=== PATIENT | female | born 1985 | race Caucasian/White ===

== ENCOUNTER 2019-08-10 07:58 | Outpatient (CLI) | payer OTHER, SELFPAY ==
--- NOTE | 2019-08-10 07:45 | XRR_ITS ---
PROCEDURE INFORMATION: Exam: XR Abdomen, 1 View Exam date and time: 08/10/2019 8:17 AM Age: 33 years old Clinical indication: Condition or disease; Kidney or ureter condition; Other: HX of kidney stones; Prior surgery; Surgery type: Hystero, kidney stone; Additional info: Urolithiasis f/u TECHNIQUE: Imaging protocol: XR of the abdomen. Views: Frontal supine view of the abdomen. 1 View. COMPARISON: CR XR KUB [id number] 08/27/2018 10:[address] Abdomen/Pelvis Renal [id number] 10/29/2018 11:31:45 AM FINDINGS: Gastrointestinal tract: No dilated gas-filled loops of bowel. Organs: No radiopaque renal or ureteral calculi. Vasculature: Phleboliths present in the pelvis. Bones/joints: No acute osseous abnormality. XR/XR KUB [id number] IMPRESSION: No radiopaque renal or ureteral calculus.
== END 2019-08-10 07:59 | disposition home or self-care (01) ==
LOC: RAD 08:01
PROVIDERS: Family Provider Family Medicine; PCP Family Medicine; Visit Provider Urology
DX: N20.9 Urinary calculus, unspecified (principal)
CPT/HCPCS: 74018; 81001; 87086

== ENCOUNTER → 2019-11-29 16:32 | Outpatient (BNVA) | payer OTHER, SELFPAY | PROVIDERS: Family Provider Family Medicine; PCP Family Medicine; Visit Provider Urology | DX: N30.20 Other chronic cystitis without hematuria (principal); N20.9 Urinary calculus, unspecified | CPT/HCPCS: 81001 ==

== ENCOUNTER → 2020-03-27 15:32 | Outpatient (BNVA) | payer OTHER, SELFPAY | PROVIDERS: Family Provider Family Medicine; PCP Family Medicine; Visit Provider Urology | DX: N30.20 Other chronic cystitis without hematuria (principal) | CPT/HCPCS: 81001 ==

== ENCOUNTER 2020-08-27 10:15 | Outpatient (CLI) | payer OTHER, SELFPAY ==
--- NOTE | 2020-08-27 10:26 | MR_ITS ---
WS: [id number] MRI HEAD WITH CONTRAST WITH ATTENTION TO THE INTERNAL AUDITORY CANALS TECHNIQUE: Sagittal T1, T2 axial, T2 axial flair, axial susceptibility weighted imaging, axial diffus ion weighted images, and coronal T2 images were obtained. Pre and post T1 axial and post T1 coronal i mages. ADC and FSPGR images. Post gadolinium images with attention to the internal auditory canals. A xial fiesta imaging. CLINICAL INFORMATION: DIZZINESS AND GIDDINESS COMPARISON: MRI head 2013 FINDINGS: No evidence of restricted diffusion to suggest acute ischemia. Ventricular system and basal cisterns are patent. Normal proctor-white differentiation. Normal posterior fossa. Normal vascular flow voids at the skull base. No extra axial fluid collections. Paranasal sinuses and mastoid air cells are well ae rated. Retention cyst left maxillary sinus measuring 1.7 CM. No hemosiderin on the susceptibility liam ghted images. Proximal 7th and 8th cranial nerves are normal in appearance. Normal trigeminal nerve root entry zone s. No enhancing IAC or CP angle mass. Mastoid air cells are well aerated. No abnormal parenchymal enh ancement. Normal dural venous sinuses. Normal optic chiasm and pituitary infundibulum. Normal caverno us sinuses and Meckel's cave. MR/MR iac's wo/w con* [id number] IMPRESSION: 1. Proximal 7th and 8th cranial nerves are normal in appearance. Normal trigem inal nerve root entry zones. 2. No evidence of enhancing IAC or CP angle mass. 3. Mastoid air cells are well aerated. Retention cyst left maxillary sinus adelina suring 1.7 CM. 4. No hemosiderin on susceptibly weighted images. 5. No other significant findings.
[2020-08-27] MEDS: gadobenate dimeglumine 20 mL vial IV (11:08)
== END 2020-08-27 10:16 | disposition home or self-care (01) ==
LOC: RADWPI 10:29
PROVIDERS: PCP Family Medicine; Visit Provider Specialist
DX: R42 Dizziness and giddiness (principal)
CPT/HCPCS: 70553; A9577

== ENCOUNTER → 2020-09-26 08:33 | Outpatient (BNVA) | payer OTHER, SELFPAY | PROVIDERS: PCP Family Medicine; Visit Provider Urology | DX: N30.20 Other chronic cystitis without hematuria (principal) | CPT/HCPCS: 81003 ==

== ENCOUNTER 2020-12-29 13:58 | Emergency (ER) | payer OTHER, SELFPAY ==
[2020-12-29 14:21] VITALS: BP 101/70; PULSE 95; RESP 16; TEMP 36.8; O2SAT 96; BMI 35.2
[2020-12-29 14:27] VITALS: O2SAT 95
[2020-12-29 15:47] LABS: SARS Covid-2 Antigen Positive (Negative)
--- NOTE | 2020-12-29 15:52 | XRR_ITS ---
PROCEDURE INFORMATION: Exam: XR Chest Exam date and time: 12/29/2020 3:52 PM Age: 35 years old Clinical indication: Cough TECHNIQUE: Imaging protocol: XR of the chest. Views: 1 view. COMPARISON: CR XR KUB [id number] 08/10/2019 8:15 AM FINDINGS: Lungs: Unremarkable. No consolidation. Pleural spaces: Unremarkable. No pleural effusion. No pneumothorax. Heart/Mediastinum: Unremarkable. No cardiomegaly. Bones/joints: Unremarkable. XR/XR chest 1V portable [id number] IMPRESSION: Negative for infiltrate
--- NOTE | 2020-12-29 16:24 | ED_ITS ---
Documented by User: REDDY Cruz 12/30/20 07:04 HPI - COVID General: Chief Complaint: COVID symptoms Stated Complaint: Covid symptoms, weak Time Seen by Provider: 12/29/20 14:57 Triage information: Has fever, cough or shortness of breath . No known COVID + exposure last 14 days History of Present Illness: HPI Narrative: Patient is a 35-year-old female comes to the ED with upper respiratory symptoms. Symptoms started 6 days ago on Thursday. She is complaining of having a dry cough, body aches, sore throat, nasal drainage and congestion. She has not been around anybody that has tested positive for COVID-19. She endorses having some nausea and a couple episodes of emesis over the past 6 days. She has been able to drink fluids and keep them down. Denies any fever, abdominal pain, chest pain, bladder or bowel symptoms. Patient has not received the Covid vaccine. COVID 19 common symptoms: positive non-productive cough, fatigue, body aches, throat pain, nasal congestion, nausea and vomiting; negative fever(s), chills, productive cough, dyspnea, headache(s) or diarrhea COVID 19 other sytmptoms: negative chest pain COVID Results: SARS-CoV-2 Antigen (Rapid) Positive (Negative) H 12/29/20 15:15 12/29/20 Review of Systems Const: Reports: body aches, change in appetite (Decreased) and fatigue; Denies: fever(s) or chills Eyes: Denies: change in vision or eye discomfort ENMT: Reports: throat pain, nasal discharge and nasal congestion; Denies: odynophagia Card: Denies: chest pain, palpitations, edema, swelling of feet/ankles, dyspnea on exertion or orthopnea Resp: Reports: non-productive cough; Denies: dyspnea or productive cough GI: Reports: nausea and vomiting; Denies: abdominal pain, diarrhea, constipation or hematochezia : Denies: flank pain, dysuria or hematuria Musc: Denies: neck pain, back pain or extremity swelling Skin/Breast: Denies: rash or new lesions Neuro: Denies: headache(s), numbness in extremities or weakness in extremities [facility] PFSH: Medical History (Updated 12/29/20 @ 17:25 by SANJAY Prieto) Chronic cystitis Diverticulosis Urinary incontinence, mixed Urolithiasis Surgical History History of bladder repair surgery History of hysterectomy History of umbilical hernia repair Family History Mother , BREAST Cancer Father , LUNG CANCER Cancer Social History Smoking and tobacco status: never smoked Alcohol intake: current Adopted: No Caregiver/support person: No Marital status: Single Current occupational status: employed History of recent travel: No Current gender identity: Female Physical Exam Const: COMMON NORMALS: no acute distress, patient oriented x3 and alert GENERAL APPEARANCE: cooperative and comfortable HENMT: COMMON NORMALS: normocephalic HEAD & SCALP: normocephalic MOUTH: Normal oral and palatal mucosa present THROAT: posterior oropharynx normal and uvula midline Neck/C-Spine: COMMON NORMALS: supple GENERAL: Yes normal visual inspection Resp: COMMON NORMALS: normal respiratory effort, No retractions, No use of accessory muscles and clear to auscultation bilaterally EFFORT & INSPECTION: Yes able to speak in complete sentences, No tachypneic, No respiratory distress and No labored AUSCULTATION: clear to auscultation bilaterally Cardio: COMMON NORMALS: regular rate, regular rhythm, S1 normal heart sound present, S2 normal heart sound present, No gallops present (Cardio), No clicks present (Cardio), No murmurs present (Cardio) and Peripheral pulses 2+ throughout RATE: regular rate RHYTHM: regular rhythm HEART SOUNDS: S1 normal heart sound present and S2 normal heart sound present PERIPHERAL PULSES: Peripheral pulses 2+ throughout GI: COMMON NORMALS: Normal to inspection, nondistended, normoactive bowel sounds present, Soft to palpation, non-tender and no masses PALPATION: Yes Soft to palpation : COMMON NORMALS: Yes no CVA tenderness BLADDER/KIDNEY EXAM: Yes no CVA tenderness Back/Pelvis: COMMON NORMALS: no CVA tenderness Extremity: COMMON NORMALS: normal to inspection Neuro: COMMON NORMALS: patient oriented x3 and moves all extremities SENSORIUM/ORIENTATION: Yes alert Skin: GENERAL SKIN EXAM: dry skin Course Vital Signs: Vital signs: Vital Signs Temperature 98.3 F 12/29/20 14:21 Pulse Rate 94 12/29/20 17:35 Respiratory Rate 18 12/29/20 17:35 Blood Pressure 103/68 12/29/20 17:35 Pulse Oximetry 96 12/29/20 17:35 MDM - COVID Lab Data: Attestation: I reviewed the patient's lab results. Labs: Lab Results 12/29/20 Range/Units 15:15 SARS-CoV-2 Ag (Rap id) Positive H (Negative) COVID Results: SARS-CoV-2 Antigen (Rapid) Positive (Negative) H 12/29/20 15:15 12/29/20 Discharge Plan Discharge Patient Disposition: Home Clinical Impression: COVID-19 Condition: Stable Prescriptions: New Zofran 4 mg tablet 4 mg PO Q8H 3 Days Qty: 9 RF: 0 No Action propranolol 40 mg tablet 40 mg PO BID RF: 0 bupropion HCl [Wellbutrin XL] 150 mg tablet extended release 24 hr 150 mg PO QAM RF: 0 buspirone 10 mg tablet 10 mg PO BID RF: 0 omeprazole 20 mg capsule,delayed release(DR/EC) 20 mg PO BID RF: 0 dicyclomine 10 mg capsule 10 mg PO QID RF: 0 triamterene-hydrochlorothiazid [Maxzide-25mg] 37.5-25 mg tablet 1 tab PO QAM RF: 0 diazepam 2 mg tablet 2 mg PO BID PRNRF: 0 sulfamethoxazole-trimethoprim [Bactrim DS] 800-160 mg tablet 1 tab PO BID Qty: 60 RF: 3 Discharge Orders: Discharge ED (Routine); Ordered 12/29/20 Ordered By: Chuck Johnson Referrals: Kevin Graves MD [Primary Care Provider] - Discharge Diet: Usual diet Discharge Activity: Increase activity as tolerated Patient Instructions: Viral Syndrome (ED) Activity Restrictions/Additional Instructions: Follow-up with medical provider as directed. Take medications as prescribed. Return to the ER or your medical provider if condition worsens. Please read and understand discharge instructions. If any questions ask please. Quarantine from 10 days once symptoms started. Coding Level of Care Code ED Reporting Consultant for g Fwd Exam Comprehensive Documented by User: SANJAY Prieto 12/29/20 18:34 HPI - COVID General: Chief Complaint: COVID symptoms Stated Complaint: Covid symptoms, weak Time Seen by Provider: 12/29/20 14:57 COVID Results: SARS-CoV-2 Antigen (Rapid) Positive (Negative) H 12/29/20 15:15 12/29/20 PFSH ED PFSH: Medical History (Updated 12/29/20 @ 17:25 by SANJAY Prieto) Chronic cystitis Diverticulosis Urinary incontinence, mixed Urolithiasis Surgical History History of bladder repair surgery History of hysterectomy History of umbilical hernia repair Family History Mother , BREAST Cancer Father , LUNG CANCER Cancer Social History Smoking and tobacco status: never smoked Alcohol intake: current Adopted: No Caregiver/support person: No Marital status: Single Current occupational status: employed History of recent travel: No Current gender identity: Female Course Vital Signs: Vital signs: Vital Signs Temperature 98.3 F 12/29/20 14:21 Pulse Rate 94 12/29/20 17:35 Respiratory Rate 18 12/29/20 17:35 Blood Pressure 103/68 12/29/20 17:35 Pulse Oximetry 96 12/29/20 17:35 MDM - COVID MDM Narrative: Medical decision making narrative: Discussed lab and radiology results with patient patient agreeable plan will self quarantine Lab Data: Labs: Lab Results 12/29/20 Range/Units 15:15 SARS-CoV-2 Ag (Rap id) Positive H (Negative) COVID Results: SARS-CoV-2 Antigen (Rapid) Positive (Negative) H 12/29/20 15:15 12/29/20 Discharge Plan Discharge Patient Disposition: Home Clinical Impression: COVID-19 Condition: Stable Prescriptions: New Zofran 4 mg tablet 4 mg PO Q8H 3 Days Qty: 9 RF: 0 No Action propranolol 40 mg tablet 40 mg PO BID RF: 0 bupropion HCl [Wellbutrin XL] 150 mg tablet extended release 24 hr 150 mg PO QAM RF: 0 buspirone 10 mg tablet 10 mg PO BID RF: 0 omeprazole 20 mg capsule,delayed release(DR/EC) 20 mg PO BID RF: 0 dicyclomine 10 mg capsule 10 mg PO QID RF: 0 triamterene-hydrochlorothiazid [Maxzide-25mg] 37.5-25 mg tablet 1 tab PO QAM RF: 0 diazepam 2 mg tablet 2 mg PO BID PRNRF: 0 sulfamethoxazole-trimethoprim [Bactrim DS] 800-160 mg tablet 1 tab PO BID Qty: 60 RF: 3 Discharge Orders: Discharge ED (Routine); Ordered 12/29/20 Ordered By: Chuck Johnson Referrals: Kevin Graves MD [Primary Care Provider] - Discharge Diet: Usual diet Discharge Activity: Increase activity as tolerated Patient Instructions: Viral Syndrome (ED) Activity Restrictions/Additional Instructions: Follow-up with medical provider as directed. Take medications as prescribed. Return to the ER or your medical provider if condition worsens. Please read and understand discharge instructions. If any questions ask please. Quarantine from 10 days once symptoms started. Coding Level of Care Code ED Reporting Consultant for Shea Fwho Exam Comprehensive
[2020-12-29] MEDS: ondansetron 4 MG Tablet PO (16:52)
[2020-12-29] MEDS: ibuprofen 800 mg tablet PO (16:52)
[2020-12-29 17:35] VITALS: BP 103/68; PULSE 94; RESP 18; O2SAT 96
== END 2020-12-29 17:35 | disposition home or self-care (01) ==
PROVIDERS: Physician Assistant; Emergency Provider Nurse Practitioner Family; PCP Family Medicine
DX: U07.1 COVID-19 (principal)
CPT/HCPCS: 71045; 87426; 99283; Q0162

== ENCOUNTER → 2021-04-03 08:37 | Outpatient (BNVA) | payer OTHER, SELFPAY | PROVIDERS: PCP Family Medicine; Visit Provider Urology | DX: N30.20 Other chronic cystitis without hematuria (principal); N20.9 Urinary calculus, unspecified | CPT/HCPCS: 81003 ==

== ENCOUNTER 2021-06-13 11:37 | Outpatient (CLI) | payer OTHER, SELFPAY ==
--- NOTE | 2021-06-13 11:42 | USCV_ITS ---
Lluvia Garcia Age: 35 Gender: F : 1985 Exam Date: 06/13/2021 12:12 Ordering Phys: Kevin Graves MD Technologist: MIGEL SANON [place] [facility] [place]: PAIN LOWER RT LEG CALF HISTORY: Post Covid pain rt lower leg PROCEDURES: Venous duplex imaging was performed in only the right lower extremity. The following venous structures were evaluated: common femoral vein, profunda vein, proximal portion of the greater saphenous vein, superficial femoral vein, and the popliteal vein. In addition, the posterior tibial and peroneal trunk were evaluated. Serial compression, augmentation maneuvers, and spectral Doppler flow evaluation were performed. FINDINGS: Normal 2-D Doppler and augmentation and compressibility throughout the lower extremity venous structures. Additional imaging through the proximal calf veins also reveals no thrombus. Limited evaluation of the greater saphenous vein is patent with no thrombus.. CONCLUSIONS No evidence of right lower extremity DVT. Valdez Uriostegui MD (Electronically Signed) Final Date: 13 June 2021 17:06 S
== END 2021-06-13 11:38 | disposition home or self-care (01) ==
PROVIDERS: PCP Family Medicine; Visit Provider Family Medicine
DX: R60.9 Edema, unspecified (principal); M79.661 Pain in right lower leg
CPT/HCPCS: 93971

== ENCOUNTER → 2021-11-26 14:56 | Outpatient (BNVA) | payer OTHER, SELFPAY | PROVIDERS: PCP Family Medicine; Visit Provider Urology | DX: N30.20 Other chronic cystitis without hematuria (principal); N20.9 Urinary calculus, unspecified | CPT/HCPCS: 81003 ==

== ENCOUNTER 2022-10-28 09:00 | Outpatient (CLI) | payer BC, SELFPAY ==
--- NOTE | 2022-10-28 09:10 | MM_ITS ---
WS: [id number] DIAGNOSTIC BILATERAL DIGITAL BREAST TOMOSYNTHESIS MAMMOGRAPHY WITH CAD RIGHT breast ultrasound, limited HISTORY: MASS OF BREAST, RT COMPARISON: 10/18/2014 TECHNIQUE: Bilateral craniocaudad, mediolateral oblique, and mediolateral views are submitted with to mosynthesis and SM. Spot compression RIGHT CC. Computer aided detection utilized. Breast composition: There are scattered areas of fibroglandular density. Palpable marker is placed al justice the inferior medial RIGHT breast. No underlying mass or distortion identified. There are no suspi cious masses or calcifications within either breast. RIGHT breast ultrasound, limited. Ultrasound is directed from 3-6 o'clock in the RIGHT breast in the palpable region. No mass identifie d at the palpable site. There are a few small cysts and small clusters of cysts. One of these cluster s is at 3:00, 3 cm from the nipple. This is a complex cluster of cysts with a few septations. Favor t his is a benign cluster of cysts but should be further evaluated. MM/[place] [id number] IMPRESSION: BI-RADS: 3-Probably Benign FOLLOW UP: 6 Month Follow-up 1. No solid mass in the region of the palpable abnormality. 2. Cluster of cysts with thin septations in the RIGHT breast at 3:00. Recommen d 6 month ultrasound follow-up as this is not a simple cyst. May need serial ul trasound evaluation for a total of 2 years.
--- NOTE | 2022-10-28 10:02 | US_ITS ---
WS: [id number] DIAGNOSTIC BILATERAL DIGITAL BREAST TOMOSYNTHESIS MAMMOGRAPHY WITH CAD RIGHT breast ultrasound, limited HISTORY: MASS OF BREAST, RT COMPARISON: 10/18/2014 TECHNIQUE: Bilateral craniocaudad, mediolateral oblique, and mediolateral views are submitted with to mosynthesis and SM. Spot compression RIGHT CC. Computer aided detection utilized. Breast composition: There are scattered areas of fibroglandular density. Palpable marker is placed al justice the inferior medial RIGHT breast. No underlying mass or distortion identified. There are no suspi cious masses or calcifications within either breast. RIGHT breast ultrasound, limited. Ultrasound is directed from 3-6 o'clock in the RIGHT breast in the palpable region. No mass identifie d at the palpable site. There are a few small cysts and small clusters of cysts. One of these cluster s is at 3:00, 3 cm from the nipple. This is a complex cluster of cysts with a few septations. Favor t his is a benign cluster of cysts but should be further evaluated. US/US breast RT limited* [id number] IMPRESSION: BI-RADS: 3-Probably Benign FOLLOW UP: 6 Month Follow-up 1. No solid mass in the region of the palpable abnormality. 2. Cluster of cysts with thin septations in the RIGHT breast at 3:00. Recommen d 6 month ultrasound follow-up as this is not a simple cyst. May need serial ul trasound evaluation for a total of 2 years.
== END 2022-10-28 09:01 | disposition home or self-care (01) ==
PROVIDERS: PCP Family Medicine; Visit Provider Family Medicine
DX: N63.15 Unspecified lump in the right breast, overlapping quadrants (principal)
CPT/HCPCS: 76642; 77062; G0279

== ENCOUNTER 2023-04-24 08:06 | Outpatient (CLI) | payer BC, SELFPAY ==
--- NOTE | 2023-04-24 08:15 | US_ITS ---
WS: [id number] ULTRASOUND RIGHT BREAST HISTORY: 6-month follow-up RIGHT breast mass at 3:00. COMPARISON: 10/28/2022 TECHNIQUE: 2-D and Doppler. Multi cystic mass previously described at 3:00 within the RIGHT breast is reidentified but is much sm aller in size. Mass now measures 5 x 4 x 3 mm. Previous measurement of 9 x 5 x 7 mm. No increased vas cularity. IMPRESSION: US/US breast RT limited* [id number] BI-RADS: 2-Benign FOLLOW-UP: See Report 1. Significant decrease in size of the cluster of small cysts in the RIGHT [address] at 3:00 now measuring 5 x 4 x 3 mm. 2. Return to annual screening mammography.
== END 2023-04-24 08:07 | disposition home or self-care (01) ==
LOC: RAD 08:07
PROVIDERS: PCP Family Medicine; Visit Provider Family Medicine
DX: N63.15 Unspecified lump in the right breast, overlapping quadrants (principal); N60.01 Solitary cyst of right breast
CPT/HCPCS: 76642

== ENCOUNTER 2023-10-30 08:49 | Outpatient (CLI) | payer BC, SELFPAY ==
--- NOTE | 2023-10-30 09:00 | MM_ITS ---
WS: [id number] Bilateral screening 3D tomosynthesis digital mammogram, 10/30/2023 Clinical Data: screening Comparison: 10/28/2022, 10/18/2014. Findings: The breast parenchymal pattern shows fibroglandular tissue. No spiculated masses or clustered calcifi cations are seen. There are no secondary signs of carcinoma. MM/[place] [id number] Impression: 1. Negative bilateral mammogram unchanged. 2. Recommend annual screening mammograms. BIRADS: 1-Negative FOLLOW UP: 1 Year Follow-up The CAD drawing checker was used.
== END 2023-10-30 08:50 | disposition home or self-care (01) ==
LOC: RAD 08:50
PROVIDERS: PCP Family Medicine; Visit Provider Family Medicine
DX: Z12.31 Encounter for screening mammogram for malignant neoplasm of breast (principal)
CPT/HCPCS: 77063; 77067

== ENCOUNTER → 2024-03-17 08:16 | Outpatient (BNVA) | payer BC, SELFPAY | PROVIDERS: PCP Family Medicine; Visit Provider Family Medicine | DX: F32.A Depression, unspecified (principal); G43.909 Migraine, unspecified, not intractable, without status migrainosus; R41.3 Other amnesia | CPT/HCPCS: 80053; 80061; 85025 ==

== ENCOUNTER 2024-11-18 14:15 | Outpatient (CLI) | payer BC, SELFPAY ==
--- NOTE | 2024-11-18 14:24 | MM_ITS ---
WS: [id number] BILATERAL 3D TOMOSYNTHESIS DIGITAL SCREENING MAMMOGRAPHY WITH CAD CLINICAL INFORMATION: SCREEN HISTORY: Screening mammogram. No current complaints. COMPARISON: 2023 TECHNIQUE: Bilateral CC and MLO views. FINDINGS: Scattered fibroglandular densities bilaterally. No suspicious focal mass, asymmetry, calcifications, or architectural distortion. No evidence of malignancy. MM/MM scr BI tomosynthesis [id number] IMPRESSION: DENSITY: There are scattered areas of fibroglandular density. BI-RADS: 1 - Negative. FOLLOW UP: 1 Year Follow-up Recommend return to annual screening mammography.
== END 2024-11-18 14:16 | disposition home or self-care (01) ==
PROVIDERS: PCP Family Medicine; Visit Provider Family Medicine
DX: Z12.31 Encounter for screening mammogram for malignant neoplasm of breast (principal); R92.323 Mammographic fibroglandular density, bilateral breasts
CPT/HCPCS: 77063; 77067

== ENCOUNTER 2025-01-16 14:33 | Emergency (ER) | payer BC, SELFPAY ==
[2025-01-16 14:35] VITALS: BP 130/102; PULSE 122; RESP 16; TEMP 36.9; O2SAT 95
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
--- OUTSIDE RECORDS SUMMARY | 2025-01-16 14:41 | XMS_ITS | Clinical Summary ---
Author Organization [facility] de Address [address] [place] [address] Phone Care Team Providers Care Epidemiologist Name Role Phone Kevin Graves MD Primary Care Provider + [phone] Allergies No known active allergies Medications raNITIdine (ZANTAC) 150 mg tablet Take 150 mg by mouth 2 times daily. Active buPROPion HCL (WELLBUTRIN XL) 150 mg Extended Release 24 hour tablet TAKE 1 TABLET BY MOUTH ONCE DAILY 11/08/2019 Active busPIRone (BUSPAR) 10 mg tablet TAKE 1 TABLET BY MOUTH ONCE DAILY 11/08/2019 Active propranoloL (INDERAL) 20 mg tablet TAKE 1 2 (ONE HALF) TABLET BY MOUTH TWICE DAILY 10/05/2019 Active sulfamethoxazole -trimethoprim (BACTRIM DS) 800-160 mg tablet Take 1 Tablet by mouth 2 times daily. 11/08/2019 Active dicyclomine (BENTYL) 10 mg capsuleIndicatio ns:Lower abdominal pain, unspecified Take 1 Capsule (10 mg) by mouth 4 times daily as needed for Pain. 120 Capsule 1 11/10/2019 Active omeprazole (PriLOSEC) 20 mg Tablet, Delayed Release (E.C.)Indication s:Gastroesophage al reflux disease, esophagitis presence not specified Take 1 Tablet (20 mg) by mouth daily. 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 Gender Identity Not on file Sexual Orientation Not on file Last Filed Vital Signs Vital Sign Reading Time Taken Comments Blood Pressure 107/66 02/24/2020 9:54 AM CDT Pulse 85 02/24/2020 9:54 AM CDT Temperature - - Respiratory Rate 21 11/16/2019 2:11 PM CDT Oxygen Saturation 94% 11/16/2019 2:11 PM CDT Inhaled Oxygen Concentration - - Weight 101.6 kg (224 lb) 02/24/2020 9:54 AM CDT Height 165.1 cm (5' 5 ) 02/24/2020 9:54 AM CDT Body Mass Index 37.28 02/24/2020 9:54 AM CDT Plan of Treatment Health Maintenance Due Date Last Done Comments HPV VACCINES (1 - 3-dose series) 1998 DTAP/TDAP/TD VACCINES (1 - Tdap) 2002 HEPATITIS B VACCINES (1 of 3 - 19+ 3-dose series) 07/17 HPV/Cotest (21-29) 2004 CERVICAL CANCER SCREENING 2013 HPV/Cotest (30-65) 2013 PAP SMEAR 2013 BREAST CANCER SCREENING 2023 INFLUENZA VACCINE (#1) 2025 04/06/[address] [place] [address] PPO Advance Directives For more information, please contact: [phone] * Full Code (Latest Code Status on File) Date Activated Date Inactivated Comments 11/16/2019 12:00 PM 11/16/2019 4:47 PM Care Teams Epidemiologist Relationship Specialty [place] [address] [place] [address] [phone] PCP - General Family Practice 11/14/19
--- OUTSIDE RECORDS SUMMARY | 2025-01-16 14:41 | XMS_ITS | Clinical Summary ---
Author Organization [facility] Address [address] [place]: Epic Prelude ADT [place] [address] Care Team Providers Care Skin Washer Name Role Phone Kevin Graves MD Primary Care Provider + [phone] Allergies No known active allergies Medications busPIRone (BUSPAR) 10 mg tablet TAKE 1 TABLET BY MOUTH ONCE DAILY 0 Active omeprazole (PriLOSEC) 20 mg Capsule, Delayed Release(E.C.) Take 1 capsule by mouth once daily 30 Capsule 2 1 Active triamterene-hyd roCHLOROthiazid e (MAXZIDE 25) 37.5-25 mg tablet Take 1 Tablet by mouth daily in the morning. 2 Active buPROPion HCL (WELLBUTRIN XL) 300 mg Extended Release 24 hour tablet Take 300 mg by mouth daily. 2 Active ondansetron (Zofran) 4 mg Tablet Take 1 Tablet (4 mg) by mouth every 8 hours as needed for Nausea/Emesis. 30 Tablet 11 2 Active prednisoLONE sodium phosphate (ORAPRED) 15 mg/5 mL (3 mg/mL) solution SWISH AND HOLD 10 MILLILITERS FOUR TIMES DAILY FOR 2 MINUTES AND THEN SPIT WHEN AREA FLARES OR IS SYMPTOMATIC 4 Active atogepant (Qulipta) 60 mg Tablet Take 1 Tablet (60 mg) by mouth daily. 30 Tablet 11 4 Active nortriptyline (PAMELOR) 25 mg capsule Take 1 capsule by mouth once daily at bedtime 90 Capsule 3 Active rizatriptan (MAXALT) 10 mg Tablet TAKE 1 TABLET BY MOUTH AT THE ONSET OF MIGRAINE, MAY REPEAT DOSE IN 2 HOURS IF NEEDED. MAX OF 3 DOSES IN 24 HOURS. 9 Tablet Active alfuzosin (UROXATRAL) 10 mg Extended Release 24 hour tablet Active estradioL (ESTRACE) 0.01% (0.1 mg/g) vaginal cream Active gabapentin (NEURONTIN) 100 mg capsule Take 1 Capsule (100 mg) by mouth 3 times daily. 90 Capsule 11 Active Hospital, Clinic, or Other Facility Administered Medication Ordered Dose Route Frequency Start Date End Date Status triamcinolone acetonide (KENALOG-40) injectable suspension 40 mgIndications:Tinnitus, bilateral,Migraine with vertigo,Ear fullness, left,Dizzy 40 mg IM ONE TIME ONLY 12/27/2024 12/27/2024 Ended Active Problems Problem Noted Date Diagnosed Date Migraine with aura and witho ut status migrainosus, not intractable 05/19/2022 Dizzy 12/20/2021 Ear fullness, left 12/20/2021 Migraine with vertigo 12/20/2021 Tinnitus, bilateral 12/20/2021 Resolved Problems Problem Noted Date Diagnosed Date Resolved Date Vertigo 05/19/2022 09/07/2023 Encounters Date Type Department Care Team Description 12/28/2024 External Device Data STL ABSTRACTION Provider, Abstract 12/27/2024 10:00 AM CDT Office Visit [facility] [address] [place] [id number] Herbert Moses, MMD UNIT TEACHER Tinnitus, bilateral (Primary Dx); Migraine with vertigo; Ear fullness, left; Dizzy 12/27/2024 External Device Data STL ABSTRACTION Provider, Abstract 11/29/2024 External Device Data STL ABSTRACTION Provider, Abstract 11/15/2024 External Device Data STL ABSTRACTION Provider, Abstract 11/08/2024 External Device Data STL ABSTRACTION Provider, Abstract 11/02/2024 External Device Data STL ABSTRACTION Provider, Abstract 11/01/2024 External Device Data STL ABSTRACTION Provider, Abstract 10/19/2024 1:15 PM CDT Office Visit [facility] [address] [place] [address] Steve Green, Tinnitus, bilateral (Primary Dx); Migraine with vertigo; Ear fullness, left 10/19/2024 9:50 AM CDT Office Visit [facility] [address] [place] [address] Deborah Palacios FNP Migraine with aura and without status migrainosus, not intractable (Primary Dx); Occipital pain; Vertigo from Last 3 Months Family History Medical History Relation Name Comments Cancer Father Ronald Lung Hypertension Father Ronald Breast Cancer Mother Lio Colon Cancer Neg Hx Relation Name Status Comments Father Ronald Mother Lio Social History Tobacco Use Types Packs/Day Years Used Date Smoking Tobacco: Never Smokeless Tobacco: Never Tobacco Cessation:Counseling Given: Not Answered Alcohol Use Standard Drinks/Week Comments Yes 0 (1 standard drink = 0.6 oz pur e alcohol) Comments Unknown Sex and Gender Information Value Date Recorded Sex Assigned at Not on file 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 Gender Identity Not on file Sexual Orientation Not on file Last Filed Vital Signs Vital Sign Reading Time Taken Comments Blood Pressure 110/64 12/27/2024 9:52 AM CDT Pulse 101 12/27/2024 9:52 AM CDT Temperature - - Respiratory Rate 21 11/16/2019 2:11 PM CDT Oxygen Saturation 98% 12/27/2024 9:52 AM CDT Inhaled Oxygen Concentration - - Weight 100.9 kg (222 lb 6.4 oz) 12/27/2024 9:52 AM CDT Height 165.1 cm (5' 5 ) 12/27/2024 9:52 AM CDT Body Mass Index 37.01 12/27/2024 9:52 AM CDT Plan of Treatment Upcoming Encounters Date Type Department Care Team (Late st Contact Info) Description 01/24/2025 10:00 AM CDT Office Visit [facility] [address] [place] [address] Herbert Moses FNP [address] [place] [address] 04/26/2025 4:00 PM SEWING MACHINE OPERATOR Office Visit [facility] [address] [place] [address] Deborah Palacios, SANJAY [address] [place] [address] Health Maintenance Due Date Last Done Comments Pre-Diabetes and Diabetes Screening 1983 HPV VACCINES (1 - 3-dose series) 1998 DTAP/TDAP/TD VACCINES (2 - Tdap) 01/19/1999 01/18/19 99 HPV/Cotest (21-29) 2004 CERVICAL CANCER SCREENING 2013 HPV/Cotest (30-65) 2013 PAP SMEAR 2013 BREAST CANCER SCREENING 2023 INFLUENZA VACCINE (#1) 2025 HEPATITIS B VACCINES Completed 08/14/1999, 03/06/1999, 01/18/1999 Procedures Procedure Name Priority Date/Time Associated Diagnosis Comments WA LABYRINTHOTOMY TRANSCANAL Routine 12/27/2024 10:14 AM CDT Migraine with vertigo Ear fullness, left Dizzy WA LABYRINTHOTOMY TRANSCANAL Routine 11/02/2024 9:56 PM CDT Ear fullness, left from Last 3 Months Results * WA LABYRINTHOTOMY TRANSCANAL (12/27/2024 10:14 AM CDT) Narrative Herbert Moses FNP - 12/27/2024 10:14 AM CDT Herbert Moses FNP 12/27/2024 10:17 AM Operative Report Procedure: Intratympanic (trans-tympanic) dexamethasone/triamcinolone perfusion of inner ear (chemical labyrinthotomy/labyrinthectomy), Unilateral, left Surgeon: SANJAY Ritchie /Steve Green DO Anesthesia: local Description of Procedure: Following proper patient and surgical site identification, informed consent was obtained. The patient was placed in the supine position and the external auditory canal was cannulated with an otologic speculum. Cerumen was removed under microscopic visualization and local anesthesia of the tympanic membrane was obtained using topical phenol application. Repeat intratympanic injections of steroid will be introduced via the same tympanic membrane site. Steroid 10 mg/cc was injected trans-tympanically using .2cc to fill the middle ear. The patient remained in the supine position for 20 min following administration and then released to home in stable condition. The patient was advised to call regarding any concerns. Kenalog [facility] 5827-8671-60 Lot [id number] Dex. [facility] [id number] Lot [id number] SANJAY Ritchie DO Herbert PALMERP AUDIOLOGY SERVICES ORDERABLE S Final Result * WA LABYRINTHOTOMY TRANSCANAL (11/02/2024 9:56 PM CDT) Narrative Steve Green DO - 11/02/2024 9:56 PM CDT Steve Green DO 11/02/2024 9:58 PM Operative Report Procedure: Intratympanic (trans-tympanic) Triamcinolone perfusion of inner ear (chemical labyrinthotomy/labyrinthectomy), Unilateral, left Surgeon: Steve Green DO Anesthesia: local EBL: none Description of Procedure: Following proper patient and surgical site identification, informed consent was obtained. The patient was placed in the supine position and the external auditory canal was cannulated with an otologic speculum. Cerumen was removed under microscopic visualization and local anesthesia of the tympanic membrane was obtained using topical phenol application. 0.2 mL of Triamcinolone ([facility] [id number]) 40 mg/cc was injected trans-tympanically in quantity sufficient to fill the middle ear. The patient remained in the supine position for 20 min following administration and then released to home in stable condition. The patient was advised to call regarding any concerns. Steve Green DO Steve Green DO AUDIOLOGY SERVICES ORDERABL ES Final Result from Last 3 Months Insurance BS BLUE ACCESS/TRUE BLUE PPO Care Teams Skin Washer Relationship Specialty Start Date End Date Kevin Graves MD [address] [place] [address] PCP - General Family Practice 11/14/19
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
--- NOTE | 2025-01-16 14:53 | CT_ITS ---
WS: [id number] CT CERVICAL SPINE HISTORY: trauma TECHNIQUE: Contiguous 2.0 mm axial imaging performed through the entire cervical spine. Sagittal and coronal reformats also performed. All CT scans at [facility] use at least one of these dose optimization techniques: automated exposure control; mA and/or kV adjustment per patient size (includes targeted exams where dose is matched to clinical indication); or iterative reconstruction. DLP: 1346.48 mGy.cm COMPARISON: None available. Normal cervical alignment. Craniocervical junction, atlantodental interval and C1-C2 alignment is normal. C2-C3: Normal. C3-C4: Normal. C4-C5: Normal. C5-C6: Posterior vertebral osteophytes slightly greatest to the LEFT of midline. No high-grade stenosis. There is mild encroachment upon the ventral thecal sac. C6-C7: Mild osteophytic ridging. Very slight foraminal narrowing. C7-T1: Normal. Soft tissues are normal. Lung apices are clear. CT/CT cervical spin wo con* [id number] IMPRESSION: No cervical spine fracture.
== END 2025-01-16 16:21 | disposition home or self-care (01) ==
PROVIDERS: Emergency Provider Physician Assistant; PCP Family Medicine
DX: S06.0X1A Concussion with loss of consciousness of 30 minutes or less, initial encounter (principal); W22.8XXA Striking against or struck by other objects, initial encounter
CPT/HCPCS: 70450; 72125; 99284